=== PATIENT | female | born 1990 | race Caucasian/White ===

== ENCOUNTER 2016-09-29 20:15 | Emergency (ER) ==
[2016-09-29 20:45] LABS: MANUAL DIFF NEEDED? NO
[2016-09-29 20:51] LABS: BASO% 0.2 % (0.0-0.8); EOS# 0.11 X1000 (0.0-0.7); EOS% 1.9 % (0.0-10.0); HEMATOCRIT 42.5 % (37.0-47.0); HEMOGLOBIN 14.6 g/dL (12.0-16.0); LYMPH# 2.28 X1000 (1.2-3.4); LYMPH% 38.7 % (20.5-51.1); MCH 31.8 PG (27-31); MCHC 34.4 g/dL (33-37); MCV 92.6 FL (81-99); MONO# 0.34 X1000 (0.11-0.59); MONO% 5.8 % (1.7-9.3); MPV 11.3 FL (7.4-10.4); NEUT% 53.4 % (42.2-75.2); PLT 165 X1000 (130-400); RBC 4.59 XMIL (4.2-5.4)
[2016-09-29 20:52] LABS: URINE MICRO REVIEW NEEDED? NO; URINE SOURCE CATH
--- NOTE | 2016-09-29 20:54 | PROVIDER DOCUMENTATION ---
HPI-Head Injury - General Source: patient, family, EMS - History of Present Illness-Head Injury Head Injury Location: reports: parietal Other injuries associated with incident:: reports: none Quality of Pain: reports: other (Pt reported that her head hurts, but could not specify type of pain) Severity: reports: severe Onset/Duration: reports: just prior to arrival Timing: reports: still present Method of Injury: reports: fell Any recent trauma/injury?: reports: to head Loss of Consciousness: unsure (Pt's friend says no; EMS says yes; decreased responsiveness on arrival) Injury Associated Symptoms: reports: dizziness, headaches, joint pain, muscle aches, sensory/motor loss, trouble walking. denies: arm pain, back/neck pain, chest pain, diaphoresis, nausea, puncture wound, shortness of breath, snap/crack /pop sensation, pain with inspiration, unable to bear weight, vomiting, weakness Locality of Occurance: Home Similar Symptoms Previously?: No Recently seen or treated by another doctor?: No <Xavier Damon - Last Filed: 09/29/16 21:28> <Nate Barrett - Last Filed: 09/30/16 01:39> - General Chief Complaint: Head Injury Stated Complaint: HEAD INJURY Time Seen by Provider: 09/29/16 20:15 Allergies/Adverse Reactions: Patient Allergies Allergy/AdvReac Type Severity Reaction Status Date / Time No Known Allergies Allergy Verified 09/29/16 20:45 Home Medications: Home Medication List Medication Instructions Recorded Confirmed Last Taken Type No Home Medications 01/02/16 09/29/16 Unknown History - History of Present Illness-Head Injury Nature of Presenting Problem: Pt is a 26 yof who presents to ER via EMS after hitting her head at home. Pt's friend reports that they were playing in the kitchen and pt was wearing socks and she slipped, fell backwards, and hit her head on the wall. Pt's friend reports that she did not lose consciousness after she fell, but she did sit on the floor for about 5 minutes, stood up by supporting herself on a counter top and was walked over to a recliner where she began to shake and became less responsive. EMS reports that pt was completely unresponsive when they arrived on scene, but pt was responsive on exam, with mild confusion as to where she was. Pt's pupils are equal and reactive, but her eyes are disconjugated pointing inwards, and fluttering. Mother reports pt has hx of vision problems, but pt's symptoms tonight are new. (Xavier Damon) Review of Systems - Adult - REVIEW OF SYSTEMS - ADULT Constitutional: denies: chills, fever, fatique, night sweats, weight gain, weight loss Eyes: reports: other (disconjugate; deviated inwards). denies: discharge, dry eyes, decreased vision, blurred vision, double vision, eye pain, redness Ears, Nose, Mouth & Throat: reports: no symptoms reported Cardiovascular: denies: chest pain, edema, heart murmur, irregular heart rate, orthopnea, palpitations, poor circulation, PND, syncope Respiratory: denies: chronic cough, cough, dyspnea on exertion, excessive sputum production, hemoptysis, pleurisy, shortness of breath, wheezing Gastrointestinal: reports: no symptoms reported Genitourinary: reports: no symptoms reported Musculoskeletal: reports: no symptoms reported Integumentary: reports: no symptoms reported Neurological: reports: dizziness/vertigo, headache/migraines, loss of balance, tremors. denies: ataxia, numbness, paresthesia, seizure, slurred speech, syncope Psychiatric: reports: no symptoms reported Endocrine: reports: no symptoms reported Hematologic/Lymphatic: reports: no symptoms reported Allergic/Immunologic: reports: no symptoms reported All Other Systems: Reviewed and Negative <Xavier Damon - Last Filed: 09/29/16 21:28> Past History - Adult - PAST MEDICAL HISTORY-ADULT Review of Records: reports: Nursing Assessment Review, Medications Reviewed - IMMUNIZATION STATUS Childhood Immunizations: See Nurse Assessment Flu Vaccine: See Nurse Assessment <Xavier Damon - Last Filed: 09/29/16 21:28> Physical Exam- Neurological - Physical Exam-Neuro Initial Vital Signs Reviewed: Yes General Appearance: alert, severe distress, lethargic, slow to respond. negative: appears well, no apparent distress, mild distress, moderate distress, cachetic, obese, thin, anxious, obtunded, combative Eye Exam: bilateral eye: normal inspection, PERRL, abnormal EOM HENMT: normocephalic/atraumatic, moist mucous membranes, normal ENT inspection Head Injury: no evidence of injury. negative: active bleeding Neck: non-tender, full range of motion, supple. negative: C-spine tenderness, limited range of motion, lymphadenopathy Respiratory: chest non-tender, lungs clear, normal breath sounds. negative: respiratory distress, decreased breath sounds, accessory muscle use, crackles, rales, rhonchi, wheezing Cardiovascular: normal peripheral pulses, regular rate, rhythm. negative: bradycardia, tachycardia, diastolic murmur, systolic murmur, irregularly irregular Abdominal Exam: normal bowel sounds, non tender, soft. 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 negative: grossly normal, no motor/sensory deficits, facial droop, motor weakness, sensory deficit Psych/Mental Status: normal thought content, normal thought process - Glascow Coma Scale Best Eye Response: (4) open spontaneously Best Verbal Response: (4) confused conversation Best Motor Response: (6) obeys commands Total Glascow Score: 14 <Xavier Damon - Last Filed: 09/29/16 21:28> Progress - CT/MRI 1 CT Study: Cervical Spine (Artifacts from motion; No fx or subluxation seen), Head (No evidence of intracranial injury) Impression: See EMR Report CT Results: See report - CONSULTS/PCP/HOSPITALIST Notification #1 *Consult/PCP/Hospitalist*: Dr. Ele Lin (ER doctor) Time Discussed: 20:54 Consult Disposition: other (Transfer) <Xavier Damon - Last Filed: 09/29/16 21:28> <Nate Barrett - Last Filed: 09/30/16 01:39> - PLAN OF CARE/RESULTS Progress/Plan/Lab Results: Vital Signs - 24 hr 09/29/16 09/29/16 20:32 20:45 Temperature 100.1 F H Pulse Rate 83 80 Respiratory 15 24 Rate Blood Pressure 113/76 121/82 O2 Sat by Pulse 100 100 Oximetry Orders Category Date Time Status Arroyo Cath Insertion ORDERED Care 09/29/16 20:46 Active Saline Loc NOW Care 09/29/16 20:33 Active CERVICAL SPINE W/O CONTRAST [CT] Stat Exams 09/29/16 20:14 Taken HEAD W/O CONTRAST [CT] Stat Exams 09/29/16 20:12 Taken ALCOHOL BLOOD Stat Lab 09/29/16 20:31 Received CBC WITH ELECTRONIC DIFF [HEME] Stat Lab 09/29/16 20:31 Completed CK PROFILE [SP CHEM] Stat Lab 09/29/16 20:31 Received COMPREHENSIVE METABOLIC PANEL [CHEM] Stat Lab 09/29/16 20:31 Received TEST-URINE [PREG] Stat Lab 09/29/16 20:45 Received PROTIME WITH INR [COAG] Stat Lab 09/29/16 20:31 Received TYPE & SCREEN [BBK] Stat Lab 09/29/16 20:31 Received URINALYSIS W/POSS RFLX CULT [URINALYSIS] Stat Lab 09/29/16 20:45 Results URINE DRUG SCREEN Stat Lab 09/29/16 20:45 Completed Laboratory Tests 09/29/16 09/29/16 09/29/16 20:31 20:45 20:45 WBC 5.89 RBC 4.59 Hgb 14.6 Hct 42.5 MCV 92.6 MCH 31.8 H MCHC 34.4 RDW Std Deviation 13.0 Plt Count 165 MPV 11.3 H Immature Gran % (Auto) 0.0 Neut % (Auto) 53.4 Lymph % (Auto) 38.7 Lynn % (Auto) 5.8 Eos % (Auto) 1.9 Baso % (Auto) 0.2 Immature Gran # (Auto) 0.00 Neut # (Auto) 3.15 Lymph # (Auto) 2.28 Lynn # (Auto) 0.34 Eos # (Auto) 0.11 Baso # (Auto) 0.01 Urine Source CATH Urine Opiates Screen NONE DETECTED Ur Oxycodone Screen NONE DETECTED Ur Methadone, Qual NONE DETECTED Ur Barbiturates Screen NONE DETECTED Ur Phencyclidine Scrn NONE DETECTED Ur Amphetamines Screen NONE DETECTED U Benzodiazepines Scrn NONE DETECTED Urine Cocaine Screen NONE DETECTED U Cannabinoids Screen NONE DETECTED (Xavier Damon) Departure - Departure Time of Disposition Order: 21:09 <Xavier Damon - Last Filed: 09/29/16 21:28> - Departure Time of Disposition Order: 20:15 Certified Medical Emergency: Emergent <Nate Barrett - Last Filed: 09/30/16 01:39> - Departure DIAGNOSIS: Traumatic brain injury Qualifiers: Encounter type: initial encounter Loss of consciousness presence/duration: with LOC of 30 min or less Qualified Code(s): S06.9X1A - Unspecified intracranial injury with loss of consciousness of 30 minutes or less, initial encounter Disposition: [facility] Condition: Critical Referrals: None,PCP [Primary Care Provider] - Attestation - Scribe Verification/Attestation Scribe:: Xavier Damon Acting as Scribe for:: Nate Barrett Scribe documention review:: This chart was documented by a scribe and accurately reflects the service the provider performed and the decisions made by the provider. <Xavier Damon - Last Filed: 09/29/16 21:28> Physician Attestation
[2016-09-29 21:04] LABS: UR AMPHETAMINES QUAL NONE DETECTED (NONE DETECT); UR BARBITUATES QUAL NONE DETECTED (NONE DETECT); UR BENZODIAZEPIN QUAL NONE DETECTED (NONE DETECT); UR CANNABINOIDS QUAL NONE DETECTED (NONE DETECT); UR COCAINE QUAL NONE DETECTED (NONE DETECT); UR METHADONE QUAL NONE DETECTED (NONE DETECT); UR OPIATES QUAL NONE DETECTED (NONE DETECT); UR OXYCODONE QUAL NONE DETECTED (NONE DETECT); UR PCP QUAL NONE DETECTED (NONE DETECT)
[2016-09-29 21:11] LABS: BILIRUBIN URINE NEGATIVE (NEGATIVE); BLOOD URINE NEGATIVE (NEGATIVE); COLOR YELLOW; GLUCOSE URINE NEGATIVE (NEGATIVE); LEUKOCYTES URINE TRACE (NEGATIVE); NITRITE URINE NEGATIVE (NEGATIVE); PH URINE 6.5; PROTEIN URINE NEGATIVE (NEGATIVE); SP GRAVITY URINE 1.018; TURBIDITY URINE CLEAR (CLEAR); UROBILINOGEN URINE NORMAL (NORMAL)
[2016-09-29 21:12] LABS: UR EPITHELIAL CELLS <10 /HPF (<10); URINE BACTERIA NEGATIVE /HPF; URINE CULTURE NEEDED? YES; URINE RBC <10 /HPF (<10); URINE WBC <10 /HPF (<10)
[2016-09-29 21:14] LABS: AGAP 16; ALBUMIN 4.8 g/dL (3.5-5.0); ALKALINE PHOSPHATASE 60 U/L (32-104); BUN 16 mg/dL (8-22); CALCIUM 9.4 mg/dL (8.8-10.2); CHLORIDE 100 mmol/L (98-107); CK PROFILE 120 U/L (24-173); COSMO 281; GOT 23 U/L (10-30); GPT 16 U/L (10-36); INR 1.02; POTASSIUM 3.4 mmol/L (3.5-5.1); PROTIME 10.8 Seconds (9.2-11.7); SODIUM 140 mmol/L (136-145); TCO2 24 mmol/L (25-35); TOTAL BILIRUBIN 0.42 mg/dL (0.20-1.00); TOTAL PROTEIN 7.3 g/dL (6.3-8.3)
[2016-09-29 21:22] VITALS: BP 109/73
--- NOTE | 2016-09-30 09:24 | Diag Imaging Result Document ---
PROCEDURE NAME: HEAD W/O CONTRAST - 09/29/2016 CT HEAD WITHOUT CONTRAST: A dose-reduction protocol was used. COMPARISON: No comparison exam. FINDINGS: There is no evidence of intracranial hemorrhage, mass effect, midline shift, or hydrocephalus. There is no skull fracture. Visualized portions of paranasal sinuses and mastoid air cells appear clear. IMPRESSION: No visible acute intracranial abnormality. No evidence of intracranial injury. Preliminary results were provided at 8:44 p.m. on 09/29/2016.
--- NOTE | 2016-09-30 09:25 | Diag Imaging Result Document ---
PROCEDURE NAME: CERVICAL SPINE W/O CONTRAST - 09/29/2016 CT CERVICAL SPINE WITHOUT CONTRAST: Axial and reformatted sagittal and coronal images are obtained. A dose-reduction protocol was used. COMPARISON: No comparison exam. FINDINGS: There are some artifacts from motion, primarily at the C6 and C7 levels, which mildly limit detail. There is no fracture identified. There is no subluxation seen. There is no precervical soft tissue swelling identified. IMPRESSION: No evidence of fracture or subluxation. Preliminary results were provided at 8:44 p.m. on 09/29/2016.
== END 2016-09-29 21:24 | disposition short-term general hospital (02) ==
LOC: ED 20:15
DX: S06.9X1A Unspecified intracranial injury with loss of consciousness of 30 minutes or less, initial encounter (principal); W01.0XXA Fall on same level from slipping, tripping and stumbling without subsequent striking against object, initial encounter; R51 Headache; R42 Dizziness and giddiness; M79.1 Myalgia; M25.50 Pain in unspecified joint; H51.0 Palsy (spasm) of conjugate gaze; R53.83 Other fatigue
CPT/HCPCS: 70450; 72125; 80053; 81001; 81025; 82550; 85025; 85610; 86850; 86900; 86901; 87088; G0480; 80320; 80324; 80345; 80346; 80349; 80353; 80358; 80361; 80365; 83992